=== PATIENT | male | born 1970 | race Two or more races ===

== ENCOUNTER 2020-08-23 10:04 | Emergency (ER) | payer OTHER ==
[2020-08-23 10:11] VITALS: BP 144/92; PULSE 95; TEMP 98.5; BMI 23.1
[2020-08-23] MEDS ORDERED: METOCLOPRAMIDE HCL INJECTION 10 MG/2 ML VIAL IVPUSH ONE (10:19)
[2020-08-23] MEDS ORDERED: SODIUM CHLORIDE 0.9% 500 ML INFUS.BAG IV ONE (10:19)
[2020-08-23] MEDS ORDERED: KETOROLAC TROMETHAMINE 30 MG/1 ML VIAL IVPUSH ONE (10:19)
[2020-08-23] MEDS ORDERED: KETOROLAC TROMETHAMINE 30 MG/1 ML VIAL ONE (10:36)
[2020-08-23] MEDS ORDERED: METOCLOPRAMIDE HCL INJECTION 10 MG/2 ML VIAL ONE (10:36)
== END 2020-08-23 12:02 | disposition home or self-care (01) ==
LOC: JERFT 10:04
PROC: 3E0333Z Introduction of Anti-inflammatory into Peripheral Vein, Percutaneous Approach (ICD-10-PCS; principal; 2020-08-23)
PROC: 3E033GC Introduction of Other Therapeutic Substance into Peripheral Vein, Percutaneous Approach (ICD-10-PCS; 2020-08-23)
DX: G44.209 Tension-type headache, unspecified, not intractable (principal)
CPT/HCPCS: 99284-25